=== PATIENT | female | born 1970 | race Caucasian/White ===

== ENCOUNTER → 2016-07-05 | Outpatient (CLI) | payer BC, OTHER ==
[2016-07-05 19:14] VITALS: BP 120/80
== END ==
LOC: MHUC 18:19
PROVIDERS: ATTEND Nurse Practitioner
DX: B34.9 Viral infection, unspecified (principal)
CPT/HCPCS: 99213

== ENCOUNTER 2016-07-16 16:17 | Outpatient (RCR) | payer BC, OTHER | END 2016-07-30 12:00 | disposition home or self-care (01) | LOC: PT 16:17 | PROVIDERS: ATTEND Physician Assistant Surgical | DX: M79.605 Pain in left leg (principal) ==

== ENCOUNTER → 2016-07-17 | Outpatient (CLI) | payer BC, OTHER ==
[2016-07-17 11:24] VITALS: BP 103/72
== END ==
LOC: MHUC 10:23
PROVIDERS: ATTEND Physician Assistant
DX: J01.00 Acute maxillary sinusitis, unspecified (principal)
CPT/HCPCS: 99213

== ENCOUNTER → 2016-07-23 | Outpatient (CLI) | payer BC, OTHER | LOC: RAD 10:36 | PROVIDERS: ATTEND Family Medicine | DX: M25.562 Pain in left knee (principal); M54.16 Radiculopathy, lumbar region; J32.0 Chronic maxillary sinusitis | CPT/HCPCS: 70486; 72100; 73562 ==

== ENCOUNTER → 2016-08-09 | Outpatient (CLI) | payer BC, OTHER | LOC: RAD 10:01 | PROVIDERS: ATTEND Family Medicine | DX: G44.52 New daily persistent headache (NDPH) (principal) | CPT/HCPCS: 70553; A9579 ==

== ENCOUNTER → 2016-09-02 | Outpatient (CLI) | payer BC, OTHER | LOC: RAD 16:35 | PROVIDERS: ATTEND Family Medicine | DX: M54.16 Radiculopathy, lumbar region (principal); M51.37 Other intervertebral disc degeneration, lumbosacral region | CPT/HCPCS: 72148 ==

== ENCOUNTER 2016-09-23 13:00 | Outpatient (RCR) | payer BC, OTHER ==
--- NOTE | 2016-08-21 15:00 | PT/OT/ST INITIAL EVALUATION ---
Department of Health and Human Services Form Approved Health Care Financing Administration OMB No. [id number] PLAN OF CARE/ASSESSMENT FOR OUTPATIENT REHABILITATION (Complete for Initial Claims Only) 1. PATIENT'S NAME Romi Spencer 2. ACC # [id number] 3. HICN NA 4. PROVIDER NO. [id number] 5. TYPE: PT 6. PRIOR HOSPITALIZATION NA 7. PRIMARY DX M25.562 left knee pain 8. SECONDARY DX Left hip pain and weakness 9. ONSET DATE One month ago 10. REFERRAL DATE 08/06/2016 11. SOC. DATE 08/16/2016 12. TIME OF EVAL 4:16 p.m. to 4:58 p.m. 12. REFERRING PHYSICIAN Dr. Angel Aleman 13. CHARGES/UNITS PT evaluation [id number] complexity. Manual therapy 30268 1 unit Therapeutic exercise 84759, 1 unit 14. G CODES NA 15. PRIOR LEVEL OF FUNCTION; PERTINENT HISTORY (Prior therapy results, reason for referral.) S: Prior to therapy the patient consented to today's evaluation and treatment. The patient is a 46-year-old female referred to physical therapy by Dr. Aleman to address functional limitations secondary to left knee pain. The patient also reports having left hip pain that does go down her left lower extremity. Current complaint/Mechanism of injury: The patient points to a painful area on the left posterior hip and states that her pain goes down both the anterior and posterior portion of her left lower extremity down to her ankle. She reports there is no numbness or tingling and then states also a portion of her left anterior hip can be painful as well. The patient reports there was no significant injury. 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 Therapy History: The patient was seen recently in physical therapy for one visit and then did not come to any further appointments. Pain rating: The patient rates the current pain level as 8/10 and describes the pain as over her whole left lower extremity. Obstacles to delivery of care: Previously the patient did not continue to attend therapy. Aggravating factors: It is more painful as soon as she gets up to a standing position. Relieving factors: Include ibuprofen. Diagnostic testing: The patient had an x-ray of her left knee, which states in the impression as no acute osseous abnormality with very minimal degenerative changes. Past medical history: Includes gastritis, interstitial cystitis, heart palpitations and she does see a dairy associate. Hypertension, which is controlled. PAST SURGICAL HISTORY: Includes having a hysterectomy, kidney stone, bladder surgery, tonsillectomy and adenoidectomy. Current medications: Current medications include ibuprofen, bisoprolol, Lisinopril, Flonase, clonazepam, Singulair (generic) and estradiol. Leisure activities Include walking and running. Activity level: Listed as high. States that she walks and runs 5 days a week approximately 5 miles each time. She does this at the [facility] on a treadmill or on the street and she does at times do the elliptical. Personal health rating: Listed as good. Patient's Goal: The patient's goal for physical therapy is to feel better. 16. INITIAL ASSESSMENT/SAFETY PRECAUTIONS/MEDICAL COMPLICATIONS (Level of function at start of care. Be specific, use objective measures, list problems.) O: APPEARANCE AND OBSERVATION: The patient is a 46-year-old female referred to physical therapy by Dr. Aleman to address left knee pain. The patient is having left hip pain with pain down her left lower extremity. She has weakness of bilateral lower extremities. The patient reports that she lives with her 12-year-old child and she is currently taking care of her mother who recently had surgery for a brain tumor. The patient can do all activities necessary of her; however, it does cause pain. The patient's piriformis bilateral is tight; however, right side appears to be tighter than the left. Bilateral hamstrings in a supine position are both very tight and lacking full flexibility. In a supine position the patient presents with a right posterior versus left anterior rotated innominate. In a prone position the left sacrum is elevated. This was treated with gentle overpressure to the left sacrum and muscle energy techniques to correct the rotation. PALPATION: The patient was tender to palpate over the left sacral border. SPECIAL TESTS: None RANGE OF MOTION/FLEXIBILITY: Lumbar range of motion and hip range of motion is within functional limits in all planes. STRENGTH: Manual muscle testing of the hips-flexion left 4-/5, right 4/5. Abduction bilateral 4/5, extension left 3/5, right 4+/5. Knee manual muscle testing flexion bilateral 4/5. Extension bilateral 4+/5. TODAY'S TREATMENT: Included the initial PT evaluation followed by manual therapy, which consisted of overpressure to a left elevated sacrum and muscle energy techniques to correct a right posterior versus left anterior rotation of the pelvis followed by therapeutic exercise and the patient was given handouts for a home exercise program. 17. INITIAL POC: (Specify procedures, modalities, short and mcc goals) A: The patient presents to physical therapy with a diagnosis of left knee pain with functional limitations of left hip pain, pain into her left lower extremity down to her ankle and weakness. This patient would benefit from physical therapy in order to help decrease pain and restore proper alignment of the pelvis in order to restore proper mechanics at the level of the lower extremity in order to decrease pain so that she may return to all of her previous activities, such as running, walking and using the elliptical without deviation. PROGNOSIS: The patient has a fair to good prognosis for increased active range of motion with decreased pain with regular therapy attendance and compliance with a prescribed home exercise program. CONTRAINDICATIONS, PRECAUTIONS AND OBSTACLES TO DELIVERY OF CARE: No contraindications or precautions are known at this time. The only obstacle is the patient has a history of not continuing with physical therapy after the first visit. INFORMED CONSENT: The prognosis and goals were discussed with the patient, as well as the expected outcome and possible risks. The patient agreed to under PT evaluation and further treatment. SHORT TERM GOALS: 1. The patient is to have decrease in pain of the left lower extremity to less than or equal to 1/10 in 4 weeks in order to be able to return to jogging without deviation. 2. The patient is to have an increase in manual muscle testing of bilateral hips to 4+/5 in 4 weeks in order to be able to keep pelvis aligned symmetrically in order to decrease pain in the left lower extremity so that she is able to return to normal activities. 3. The patient is to have increase in hamstring flexibility bilaterally to 150 degrees in 4 weeks in order to be able to maintain pelvic symmetry and to decrease strain on the low back for return to activities without deviation. 4. The patient is to be independent with a progressive home exercise program. P: Plan to treat this patient 2 times a week for 4 weeks. Treatment to include modalities for pain and inflammation, manual therapy interventions, therapeutic exercise, active and passive range of motion, gait training, balance proprioceptive training, neural reeducation and patient education and prescription of progressive home exercise program as tolerable. 18. FREQUENCY 2 times a week 19. DURATION 4 weeks 20. FUNCTIONAL LEVEL (End of claim period) 21. PHYSICIAN SIGNATURE ? ON FILE OR ENTER HERE: 22. DATE: I certify the need for these services furnished under this plan of care and if for partial hospitalization. 23. CERTIFICATION FROM THROUGH FORM FA-700
[~2016-09-23 13:00] MED LIST: ALPR.25T; AML5T PO; AZIT250T81 PO; BISO1TAB3 PO; BISO1TAB6 PO; CEFD300C PO; CEPH-507 PO; CHLO1CAP PO; CLON0.5T3 PO; ESTR1TAB24 PO; LANS30CA14 PO; LISI10TA; METR500T; MPR22TI TOP; OXYB5TAB9 PO; PRED20TA PO; PRED50TA PO; ZOLP5TAB PO; [UNRECOGNIZED DRUG - CODE]; [UNRECOGNIZED DRUG - CODE]; [UNRECOGNIZED DRUG - REMARK]
== END 2016-11-04 09:56 | disposition home or self-care (01) ==
LOC: PT 13:00
PROVIDERS: ATTEND Family Medicine
DX: M25.562 Pain in left knee (principal)

== ENCOUNTER → 2016-09-26 | Outpatient (CLI) | payer BC, OTHER ==
[~2016-09-26] MED LIST changes: +methylPREDNISolone 80 MG/ML (DEPO MEDROL) VIAL IM ONE
--- NOTE | 2016-09-27 09:32 | PAIN MANAGEMENT ---
Date of note: 09/26/2016 Procedure: Epidural steroid injection L4-5 This is a 46-year-old female under the care of Dr. Angel Aleman. The patient is referred to anesthesia for the purpose of an epidural steroid injection secondary to acute lumbar radiculopathy. MRI showed some disk bulge at L3-4, L4-5 and L5-S1. She has some radicular symptoms that could be from L5-S1, mainly S1 or potentially L1-2. She has pain that comes out of her hip and buttock area. It travels down out across the top of the leg into the groin area. Upon palpation she is very sore over the SI joint area, specifically the left side, although it is bilateral in nature. This is following more the L4-5 dermatome areas. We discussed our options today with the disk bulge and her hip and buttock pain, she wanted to go after that, and based on MRI results that what we did. We decided to go forward with an L4-5 epidural steroid injection. Informed consent was obtained. The patient was placed in the left lateral decubitus position. Orders for procedure verified. Patient denies any bleeding tendencies. After informed consent obtained, the patient was positioned for the procedure. The area was prepped and draped using aseptic technique. The skin and overlying tissues were localized using 3 mL of 1% Preservative-Free lidocaine using a 25-gauge 1.5-inch needle. A 20-gauge Tuohy needle was advanced, using "loss of resistance" technique, to the epidural space. No blood, cerebral spinal fluid, pain, or paresthesia noted on entry of the epidural space. A 1 mL solution of Depo-Medrol 80 mg was injected slowly without mass volume effect. The needle was then removed and the patient was turned to the sitting position where she remained for approximately 10 minutes. She was then released with vital signs stable and faculties intact. She is asked to follow up with me via my cellphone in approximately 3 days. The patient states she understands these discharge instructions and I will follow her from there.
== END ==
LOC: PMC 15:30
PROVIDERS: ATTEND Family Medicine
DX: M51.16 Intervertebral disc disorders with radiculopathy, lumbar region (principal); I10 Essential (primary) hypertension; K21.9 Gastro-esophageal reflux disease without esophagitis
CPT/HCPCS: 62322; J1040

== ENCOUNTER → 2016-11-05 | Outpatient (CLI) | payer BC, OTHER ==
[~2016-11-05] MED LIST changes: -methylPREDNISolone 80 MG/ML (DEPO MEDROL) VIAL IM ONE
[2016-11-05 12:27] VITALS: BP 113/80
--- NOTE | 2016-11-05 12:28 | Urgent Care T Sheet Gen (E) ---
Intake General Temperature (Fahrenheit): 98.5 Pulse: 64 Blood Pressure Systolic: 113 Blood Pressure Diastolic: 80 Respirations: 18 Description of Symptoms patient presents with sore throat since Friday, which worsened on Friday while watching baseball games all day. Notes swollen glands and throat pain, worse with eating. No fever. No cough or congestion. Has been taking ibuprofen which helps. History of Present Illness Allergies: Coded Allergies: Sulfa (Sulfonamide Antibiotics) (Verified Allergy, Unknown, Rash, 05/23/16 ) Uncoded Allergies: PAIN MEDS CAUSE NAUSEA (Adverse Reaction, Unknown, 01/12/14) Home Meds Active Scripts Prednisone 20 Mg Detrsi57 Mg PO DAILY #6 TAB Prov:CORINNE BELL 07/17/16 Cefdinir 300 Mg Tmkmicy000 Mg PO BID #14 CAP Prov:CORINNE BELL 07/16/16 Prednisone 50 Mg [id number] Mg PO DAILY Inflammation #4 TAB Ref 0 Prov:AVE AGUILERA MD 05/23/16 Reported Medications Clonazepam 0.5 Mg Tablet0.5 Mg PO NEEDED 05/23/16 Amlodipine Besylate 5 Mg Tablet5 Mg PO DAILY 05/23/16 Estradiol 1 Mg Tablet1 Mg PO DAILY 05/23/16 Chlordiazepoxide/Clidinium (Librax 5mg/2.5mg)1 Each Capsule2.5 Mg PO TID 04/15/13 Oxybutynin Chloride 5 Mg Tablet1 Tab PO TID PRN 04/15/13 Bisoprolol Fumarate/HCTZ (Bisoprolol-HCTZ 5-6.25 mg)1 Each Tablet1 Tab PO DAILY 04/15/13 Zolpidem Tartrate (Ambien)5 Mg Tablet2 Tab PO PRN 11/06/12 Respiratory Constitutional Symptoms: No syptoms reportedNo Fever, Malaise EENTM: Throat painNo Throat swelling Respiratory: No symptoms reported Cardiovascular: No symptoms reported Gastrointestinal/Abdominal: No symptoms reported All Other Systems Reviewed Remaining Systems: All other systems reviewed with negative findings Past Cqucpqm-Dzcacr-Lifzce Hx Patient's Social History Alcohol Use: Denies Use Smoking Status: Never smoker Surgeries/Hospitalizations Hospitalization/Surgery Hx: T&A Hyst Heart Cath Lithotrypsy 2012 Hx HTN, Interstitial cystitis, bradycardia Respiratory Respiratory History: None Comment: 2012 nodule noted on one lung - will be rechecked in 2012 Cardiovascular Cardiovascular History: Hypertension, Palpitations, Arrhythmia Comment: heart cath 07/2012 for failed stress test Neuro/Muscular Neuro/Muscular History: Visual impairment Reproductive System Sexually Transmitted Diseases: No (na) Genitouinary Genitourinary History: Other, see comments Comment: Interstitial Cystitis Gastrointestinal GI/Endocrine History: Heartburn, Abdominal pain, GERD, Other, see comment Comment: Epigastric pain. Belching and bloating. Diabetes Diabetes: No HEENT Impaired Vision: Glasses Hearing Impaired: None Integumentary Integumentary History: None Comment: Color pale. Cancer History of Cancer?: No Cancer type: none Psychosocial Behavior Disorders: Anxiety, Sleep Difficulties Physical Exam Physical Exam General Appearance: WD/WN No apparent distress Eyes, Ears, Nose, Throat Ex: TMs normal Pharyngeal erythema (cobblestone appearance. throat appears more irritated than infected.) Neck Exam: Supple Lymphadenopathy Respiratory Exam: Lungs clear Normal breath sounds Cardiovascular Exam: Regular rate, rhythm Departure Urgent Care Impression Impression: Primary Impression: Pharyngitis Qualified Code: J02.8 - Acute pharyngitis due to other specified organisms Departure Disposition: HOME OR SELF-CARE Condition: Stable Referrals: KHALIDA SORIANO MD (PCP) Additional Instructions: The patient's throat appears more irritated than infected. Offered to swab for strep however declined. Will treat symptomatically. most likely this is an irritant from being outside all weekend. Does have a history of allergies for which she takes Singulair daily. I have started her on Prednisone x 3 days. No NSAIDs. If no better, then she may start the Amoxicillin which I have sent home with her. Rest. Fluids Return as needed Patient understands DC instructions. All questions were answered. Scripts Prednisone 20 Mg Vaznbx79 Mg PO DAILY #6 TAB Prov:CORINNE BELL 11/05/16 End of report . CORINNE BELL November 05, 2016 12:27
== END ==
LOC: MHUC 12:09
PROVIDERS: ATTEND Physician Assistant
DX: J02.8 Acute pharyngitis due to other specified organisms (principal)
CPT/HCPCS: 99213